=== PATIENT | female | born 1950 | race Caucasian/White ===

== ENCOUNTER → 2017-03-04 | Outpatient (CLI) | payer MEDICARE, BC ==
[2015-11-13 08:16] VITALS: BP 110/68
[~2017-03-04] MED LIST: ACET500T68 PO; ASPI-482 PO; ATOR40TA59 PO; BUPIVACAINE MPF 0.25% 10 ML VIAL. ONE; CELE200C PO; FLUT9.9S NS; IOHEXOL 180 MG/ML 10 ML VIAL. ONE; MULT-208 PO; OLME1TAB35 PO; OLOP5DRO EACHEYE; OMEP20CA9 PO; TRAM50TA PO; methylPREDNISolone ACETATE 40 MG/ML VIAL. ONE; methylPREDNISolone ACETATE 80 MG/ML VIAL. ONE
--- NOTE | 2017-03-04 22:33 | PAIN ---
DATE OF SERVICE: 03/04/2017 INITIAL CONSULTATION FOR PAIN CLINIC CHIEF COMPLAINT: Right-sided neck pain. HISTORY OF PRESENT ILLNESS: This is a 66-year-old female who presents with history of pain to the right side of the neck for about 1 year. The patient reports she slept on an unusually uncomfortable pillow about a year ago and the pain began with that event. She has done physical therapy since that time, which helped the pain to some extent, but it has become gradually worse over the past two to three months without any new injury or accident that she is aware of, just became worse and more painful on the right side of the neck radiating to the right shoulder into the posterior shoulder blade as well into the anterior clavicle and into the anterior shoulders, to some extent on the deltoid and anterior aspect of the biceps. The patient reports that it is more rare for it to radiate that far into the arm, but very painful on the right side of the neck, it is becoming more constant with some numbness and tingling, worse during the day with activity, burning, cramping, aching at times and stinging on the right side as well. The patient reports no symptoms on the left side. The patient reports it awakens her from sleep about once or twice at night, but not every night. The patient reports it does not affect her bowel or bladder control or ability to walk. She has done physical therapy with some massage therapy as well, which helped for about a day each time she has done, but the pain comes back and the relief is only very brief. The patient is taking ibuprofen, Tylenol and tramadol all of which help to a moderate extent and Voltaren ointment, which helps minorly also. The patient reports no loss of motor function of the right upper extremity, but only increased fatigability with motion and range of motion such as driving the car, raising her arm above her head on the right side and putting on clothing especially a coat where she has to reach back and find the arm on the right side. The patient did have an MRI scan of the cervical spine dated 01/18/2017 showing multilevel cervical spondylosis C3-C4 through C6-C7 with mild central canal stenosis at C4-C5 and C5-C6 with a posterior broad-based right paracentral disk protrusion at C4-C5. The patient rates her disability rating from 0 to 10, 10 being the worst, it is an 8-9 with family and home responsibilities, recreation, social activity, sexual behavior and occupation, 0 with self care, 5-6 with life support activities. PAST MEDICAL HISTORY: Significant for hypertension, arthritis, gastroesophageal reflux, hyperlipidemia, quit smoking many years ago and history of sleep apnea. PAST SURGICAL HISTORY: No previous surgeries. CURRENT MEDICATIONS: Include Celebrex, tramadol, Prilosec, multivitamins, aspirin, Tylenol, olmesartan, amlodipine, atorvastatin, fluticasone eyedrops. ALLERGIES: THE PATIENT IS ALLERGIC TO PENICILLIN AND BIAXIN, ALSO CODEINE. FAMILY HISTORY: Significant for heart disease, hypertension and diabetes. SOCIAL HISTORY: The patient drinks about 2-3 alcoholic drinks a week on average, does not smoke, quit many years ago. She is , lives with her spouse and lives locally in [place], [place]. REVIEW OF SYSTEMS: The patient's review of systems is positive for those items mentioned in the history of present illness. All systems reviewed and otherwise negative. It is complete, full and well documented on the patient's chart. PHYSICAL EXAMINATION: VITAL SIGNS: The patient's blood pressure is 147/89, pulse 76, respirations 16, temperature 97.4 degrees Fahrenheit, height is 5 feet 5 inches and weight is 187 pounds. GENERAL: The patient is awake, alert, oriented, appropriate, very pleasant demeanor. HEENT: Shows normocephalic and atraumatic. Extraocular movements are intact and symmetrical. Oral cavity shows mucous membranes moist and pink. Dentition is intact. NECK: Shows anterior throat supple without palpable lymphadenopathy noted. Swallow reflex is symmetrical. CHEST: Shows normal on inspection. Breath sounds clear to auscultation bilaterally. HEART: Shows S1 and S2 clear. No murmurs auscultated. ABDOMEN: Soft, nontender and nondistended. No palpable organomegaly is noted. No rebound or guarding demonstrated. MUSCULOSKELETAL: Back shows spine grossly in the midline. Normal appearing cervical lordotic curvature, thoracic kyphotic curvature and lumbar lordotic curvature. Skin shows warm and dry. No previous bruises, lesions, rashes or scars are noted. The patient's neck shows normal on inspection with cervical paraspinous musculature. With palpation shows some moderate tenderness diffusely throughout the upper, middle and lower distribution of the right side only. Left side is supple and less firm. Again no trigger points on the right side, no radiation of pain, but still significant point tenderness in the lateral posterior aspect of the right paraspinous musculature and into the superior medial trapezius on the right, but not the left. The patient shows good rotational motion; however, both laterally greater than 45 degrees. There is some pain reported with right lateral rotation past 45 degrees in the base of the neck and near the mid neck as well. This is true with extension, but not with forward flexion. The left lateral rotation is performed without difficulty past 45 degrees closer to 90 degrees without difficulty. Upper extremities show deep tendon reflexes 2+ in the biceps and triceps tendons. Motor exam is strong with 5/5 sap technical architect strength, biceps and triceps flexion and is equal and symmetrical. Peripheral pulses are 2+ radial distribution. No peripheral edema is noted. No clubbing or cyanosis. Shoulder shrug is strong and intact without loss of strength on resistance with minor pain reported in the base of the neck on the right side. This is true with abduction of the shoulder to 90 degrees as well without loss of strength on resistance. IMPRESSION: 1. This is a 66-year-old female with approximately 1 year history of pain, right side of the neck pain, increasing over the past 2-3 months. 2. MRI scan of the cervical spine as noted. 3. Hypertension. 4. Arthritis. PLAN: Options were discussed with the patient including conservative medical management, physical therapy and interventional techniques. As she has performed physical therapies and had some success with this, she would like to pursue an interventional technique. We discussed cervical medial branch facet blocks with using models as well as explanation with risks discussed including, but not limited to bleeding, infection, possibility of epidural hematoma, subsequent neurologic compromise, dural punctures, headaches, spinal cord and/or nerve damage, side effects of steroid medications, exposure to fluoroscopy and poor results regarding pain control. The patient understands and wishes to proceed. The patient will return to the clinic in approximately 2 weeks for followup. She was counseled to return appointment, activity level and side effects to be aware of. DIAGNOSIS: Cervical spondylosis with cervical degenerative disk disease and cervicalgia, right side. PROCEDURE: Right-sided cervical facet medial branch blocks at C3-C4, C4-C5 and C5-C6 levels using C-arm fluoroscopic guidance under sterile prep and drape using local anesthetic. MEDICATIONS INJECTED: A total of 120 mg Depo-Medrol plus total of 4 mL of 0.25% bupivacaine and 2 mL of Isovue for contrast. CONDITION AT DISCHARGE: Stable. The patient tolerated the procedure well and had no complications. BRICE JHAVERI MD DR: JOANNE/maría JOB#: [id number] / [id number]
== END | disposition home or self-care (01) ==
LOC: PNCL 12:24
PROVIDERS: ATTEND Anesthesiology
DX: M50.30 Other cervical disc degeneration, unspecified cervical region (principal); M47.812 Spondylosis without myelopathy or radiculopathy, cervical region; I10 Essential (primary) hypertension; M19.90 Unspecified osteoarthritis, unspecified site; K21.9 Gastro-esophageal reflux disease without esophagitis; E78.5 Hyperlipidemia, unspecified; Z87.891 Personal history of nicotine dependence; G47.30 Sleep apnea, unspecified; Z98.51 Tubal ligation status; Z86.010 Personal history of colon polyps; Z79.899 Other long term (current) drug therapy
CPT/HCPCS: 64490; 64491; 64492; J1030; J1040; J3490

== ENCOUNTER → 2017-03-18 | Outpatient (CLI) | payer MEDICARE, BC ==
[2015-11-13 08:16] VITALS: BP 110/68
[~2017-03-18] MED LIST changes: -BUPIVACAINE MPF 0.25% 10 ML VIAL. ONE; -IOHEXOL 180 MG/ML 10 ML VIAL. ONE; -methylPREDNISolone ACETATE 40 MG/ML VIAL. ONE; -methylPREDNISolone ACETATE 80 MG/ML VIAL. ONE
--- NOTE | 2017-03-18 20:28 | PAIN ---
DATE OF SERVICE: 03/18/2017 PROGRESS NOTE FOR PAIN CLINIC: DIAGNOSES: Lumbar spondylosis with lumbar degenerative disk disease and cervicalgia. HISTORY OF PRESENT ILLNESS: The patient is a 66-year-old female who returns for followup status post right-sided cervical medial branch facet blocks at C3-C4, C4-C5, and C5-C6. The patient reports approximately 75% improvement in the pain in the neck and is doing much better. The patient reports she has been increasing activity with greater ease and comfort and sleeping better at night been using her neck with good directional positions and rotation without significant difficulty. The patient reports occasionally aches with some burning pain, dull, also tight at times, but not constant, which is on and off. She has some very good days, some days are more bothersome, but again nothing below about 75% improvement. The patient reports no new motor or sensory deficits. She is sleeping well at night once again no other changes. PHYSICAL EXAMINATION: VITAL SIGNS: Blood pressure 145/86, pulse 74, respirations are 18, temperature is 98.8 degrees Fahrenheit. Height 5 feet 5 inches, weighs 175 pounds. GENERAL: The patient is awake, alert, oriented, appropriate, very pleasant demeanor. HEENT: Head shows normocephalic, atraumatic. Extraocular muscles are intact and symmetrical. Oral cavity: Mucous membranes moist and pink. Dentition is intact. NECK: Shows anterior throat supple without palpable lymphadenopathy noted. Swallow reflex is symmetrical. CHEST: Shows normal on inspection. Breath sounds clear to auscultation bilaterally. HEART: Shows S1, S2 clear. No murmurs auscultated. ABDOMEN: Soft, nontender, nondistended. No palpable organomegaly is noted. BACK: Shows spine grossly midline. Cervical paraspinous muscle shows symmetrical with inspection and palpation shows some very mild tenderness with palpation only in the inferior aspect of the cervical paraspinous muscles, more on the right than the left, but again very minimal. The patient has full rotational motion of cervical spine, left past 45 degrees, right and left lateral full extension, full forward flexion without exacerbation of pain on exam today. EXTREMITIES: The patient's upper extremities show deep tendon reflexes 2+ in the biceps, triceps tendons. Motor exam is strong with assembly detailer strength rated 5/5 as is bicep and tricep flexion and symmetrical. Peripheral pulses are 2+ radial distribution. No peripheral edema is noted bilaterally. Options were discussed with the patient. The patient's old chart was reviewed as her current medication regimen and updated. Current review of systems updated today as well. We will hold on any further injection at that time. She is doing quite well and she would like to wait and see how this does. As she has had good consistent pain control without increasing pain over the last several weeks. We will try Medrol Dosepak as well to see if this may get rid of some of the residual pain that may be a left and the patient will try this first prior to considering any further injections per her choice. The patient was given instruction as well as side effects to aware with medication. Follow up in approximately 1 week with a progress report as scheduled. BRICE JHAVERI MD DR: JOANNE/maría JOB#: [id number] / [id number]
== END | disposition home or self-care (01) ==
LOC: PNCL 09:46
PROVIDERS: ATTEND Anesthesiology
DX: M51.36 Other intervertebral disc degeneration, lumbar region (principal); M47.896 Other spondylosis, lumbar region
CPT/HCPCS: G0463